=== PATIENT | female | born 1980 | race Caucasian/White ===

== ENCOUNTER 2019-08-08 00:29 | Emergency (ER) | payer MEDICAID, OTHER ==
[~2019-08-08] VITALS: Ht 162.6 cm; Wt 120.0 kg
[2019-08-08] MEDS ORDERED: ONDANSETRON HCL 4MG/2ML INJ IV STA (00:48)
[2019-08-08] MEDS ORDERED: MORPHINE SULFATE 4 MG/ML CPJ (NOT FOR IM USE) IV ONE (01:00)
[2019-08-08] MEDS ORDERED: DIPHENHYDRAMINE 50MG/ML VIAL IV ONE (01:00)
[2019-08-08 02:58] LABS: BASOPHILS % 1.1 % (0.0-2.0); EOSINOPHILS % 1.4 % (0.0-5.0); HEMOGLOBIN. 13.2 g/dL (12.0-16.0); LYMPHOCYTES % 25.9 % (20.0-50.0); MEAN CORPUSCULAR HEMOGLOBIN 28.9 pg (28.0-32.0); MEAN CORPUSCULAR VOLUME 85.4 fL (81.0-99.0); MEAN PLATELET VOLUME 7.7 fl (7.4-10.4); MONOCYTES % 5.9 % (2.0-8.0); NEUTROPHILS % 65.7 % (40.0-76.0); PLATELET 375 x1000/uL (130-400); RED BLOOD CELL COUNT 4.57 mill/uL (4.2-5.4); RED CELL DISTRIBUTION WIDTH 16.1 % (11.6-14.6)
[2019-08-08 03:09] LABS: D-DIMER 0.25 mg/L FEU (<0.50); INR 0.9; PARTIAL THROMBOPLASTIN TIME 26.4 sec (23.4-31.0); PROTHROMBIN TIME 9.5 sec (9.6-11.0)
[2019-08-08 03:16] LABS: CHLORIDE 107 mEq/L (98-107)
[2019-08-08 03:20] LABS: ETHANOL BLOOD < 10 mg/dL
[2019-08-08 03:23] LABS: LDL CHOLESTEROL 136 mg/dL (5-100)
[2019-08-08 03:25] LABS: CREATINE KINASE 88 IU/L (26-192)
[2019-08-08 03:41] LABS: HCG SCREEN NEGATIVE
[2019-08-08 03:43] LABS: CLARITY URINE CLEAR (CLEAR); COLOR URINE YELLOW (YELLOW); KETONES URINE NEGATIVE (NEGATIVE); LEUKOCYTE ESTERASE URINE NEGATIVE (NEGATIVE); NITRITE URINE NEGATIVE (NEGATIVE); OCCULT BLOOD URINE NEGATIVE (NEGATIVE); PH URINE 5.5 (4.5-8.0); PROTEIN URINE NEGATIVE (NEGATIVE); SPECIFIC GRAVITY URINE 1.024 (1.005-1.030); UROBILINOGEN URINE 0.2 E.U./dL (0.2-1.0)
[2019-08-08 03:57] VITALS: BP 118/94
[2019-08-08] MEDS ORDERED: TRAMADOL 50MG TABLET PO ONE (04:15)
[2019-08-08] MEDS ORDERED: MORPHINE SULFATE 10 MG/ML CPJ IM ONE (05:45)
[2019-08-08] MEDS ORDERED: LORAZEPAM 2MG/ML CPJ IV ONE (05:45)
== END 2019-08-08 06:10 | disposition left against medical advice (07) ==
LOC: ER 00:29 → EDBEDREQTM 04:23 → EDBEDREQSVC 04:23 → EDBEDREQ 04:23 → ER 06:10 → CANBEDREQ 06:21
DX: I63.9 Cerebral infarction, unspecified (principal); R53.1 Weakness; I10 Essential (primary) hypertension; Z90.49 Acquired absence of other specified parts of digestive tract; Z91.041 Radiographic dye allergy status; Z88.6 Allergy status to analgesic agent; Z88.2 Allergy status to sulfonamides
CPT/HCPCS: 36415; 70450; 71045; 80053; 80320; 81003; 81025; 82550; 82962; 83690; 83721; 83880; 84484; 84703; 85025; 85379; 85610; 85730; 93005; 96374; 96375; 99285; J1200; J2270; J2405; 80305; G0480